=== PATIENT | female | born 1970 | race Caucasian/White ===

== ENCOUNTER 2016-11-14 20:55 | Emergency (ER) | payer MEDICARE, OTHER ==
--- NOTE | 2016-11-14 22:17 | US ---
EXAM: US Duplex Left Lower Extremity Veins. CLINICAL HISTORY: Reason: Pain TECHNIQUE: Real-time ultrasound scan of the veins of the left lower extremity with color Doppler flow, spectral waveform analysis and compression. COMPARISON: None. FINDINGS: Deep veins: Unremarkable. No DVT in the common femoral, femoral or popliteal veins. Superficial veins: Unremarkable. No thrombus in the visualized greater saphenous vein. IMPRESSION: No evidence of deep venous thrombosis in the left lower extremity.
[2016-11-14 22:53] LABS: CH 29.4; CHCM 33.6; HCT 48.2 % (34.0-46.0); HDW 2.59; HGB 15.9 gm/dL (11.4-16.0); MCV 87.9 fL (80.0-100.0); Mean Platelet Volume 8.3; RBC 5.48 m/uL (3.80-5.40); RDW 13.6 % (11.5-15.5); WBC 13.9 k/uL (3.8-10.6); WBC (Perox) 13.38
--- NOTE | 2016-11-14 22:54 | ED ---
Lower Extremity Injury HPI - General Chief Complaint: Extremity Injury, Lower Stated Complaint: left leg pain Time Seen by Provider: 11/14/16 22:08 Source: patient Mode of arrival: ambulatory Limitations: no limitations - History of Present Illness Initial Comments: This patient is a 45-year-old woman who presents to be evaluated for left ankle pain. She states that the pain has been there for going on 3 days. She does not recall having a definite injury to the area. She states that the pain is moderate, gets much worse if she attempts to bear weight, the pain is constant and it is an aching. She states that she has been using a walker to aid in her walking. In addition she noted that there is a reddened area of skin over the aldridge of the left leg that developed after she had been having the pain for a day. Onset/Timin -: days(s) Place: home Improves With: rest Worsens With: weight bearing Associated Symptoms: swelling - Related Data Home Medications Medication Instructions Recorded Confirmed Cholecalciferol [Vitamin D3] 1,000 unit PO DAILY 11/14/16 11/14/16 Fenofibrate [Lofibra] 160 mg PO DAILY 11/14/16 11/14/16 Furosemide [Lasix] 20 mg PO DAILY 11/14/16 11/14/16 Losartan Potassium [Cozaar] 50 mg PO DAILY 11/14/16 11/14/16 Verapamil HCl [Verapamil ER] 240 mg PO DAILY 11/14/16 11/14/16 guaiFENesin [Mucinex] 600 mg PO Q12HR 11/14/16 11/14/16 Previous Rx's Medication Instructions Recorded Acetaminophen Tab [Tylenol Tab] 500 mg PO Q4H #30 tablet 10/19/15 Allergies Allergy/AdvReac Type Severity Reaction Status Date / Time Tetracyclines Allergy Unknown Verified 11/14/16 20:59 red dye Allergy Unknown Uncoded 11/14/16 20:59 Review of Systems ROS Statement: Those systems with pertinent positive or pertinent negative responses have been documented in the HPI. ROS Other: All systems not noted in ROS Statement are negative. Constitutional: Denies: fever, chills ENT: Reports: congestion Respiratory: Reports: cough. Denies: dyspnea Cardiovascular: Denies: chest pain, palpitations, edema Gastrointestinal: Denies: abdominal pain, vomiting, diarrhea Musculoskeletal: Reports: joint swelling, arthralgia Skin: Reports: as per HPI, rash Neurological: Denies: headache, weakness Past Medical History Past Medical History: Seizure Disorder Additional Past Medical History / Comment(s): encephaltis, lyme disease History of Any Multi-Drug Resistant Organisms: MRSA Date of last positivie culture/infection: 2009 MDRO Source:: Left Buttocks Past Surgical History: Unable to Obtain Additional Past Surgical History / Comment(s): left thigh cyst removed Past Psychological History: Anxiety Smoking Status: Never smoker Past Alcohol Use History: None Reported Past Drug Use History: None Reported General Exam Limitations: no limitations General appearance: alert, in no apparent distress Eye exam: Present: normal appearance. Absent: scleral icterus, conjunctival injection Neck exam: Present: normal inspection, full ROM Respiratory exam: Present: normal lung sounds bilaterally. Absent: respiratory distress, wheezes, rales, rhonchi, stridor Cardiovascular Exam: Present: regular rate, normal rhythm, normal heart sounds. Absent: systolic murmur, diastolic murmur, rubs, gallop GI/Abdominal exam: Present: soft. Absent: distended, tenderness, guarding, rebound Extremities exam: Present: normal capillary refill. Absent: pedal edema, calf tenderness Back exam: Present: normal inspection. Absent: CVA tenderness (R), CVA tenderness (L) Skin exam: Present: warm, dry, intact, other (There is one area of erythema and tenderness approximately at 2 and half by 3 cm to the anterior of the left aldridge just proximal to the ankle. This has the appearance consistent with erythema nodosum.) Course Vital Signs 11/14/16 11/14/16 20:56 23:33 Temperature 98.8 F 97.9 F Pulse Rate 112 H 94 Respiratory 20 18 Rate Blood Pressure 180/79 142/77 O2 Sat by Pulse 97 95 Oximetry Medical Decision Making - Medical Decision Making Patient is a 45-year-old woman with left ankle arthralgia, without recalling any trauma. The patient also has an area of erythema to the pretibial area which does appear consistent with erythema nodosum however there is only one lesion which would be atypical. We'll have the patient follow with rheumatology. Discussed appropriate follow-up and return parameters. - Lab Data Result diagrams: 11/14/16 22:35 11/14/16 22:35 Lab Results 11/14/16 11/14/16 11/14/16 Range/Units 22:35 22:35 22:35 WBC 13.9 H (3.8-10.6) k/uL RBC 5.48 H (3.80-5.40) m/uL Hgb 15.9 (11.4-16.0) gm/dL Hct 48.2 H (34.0-46.0) % MCV 87.9 (80.0-100.0) fL MCH 29.0 (25.0-35.0) pg MCHC 33.0 (31.0-37.0) g/dL RDW 13.6 (11.5-15.5) % Plt Count 229 (150-450) k/uL Neutrophils % (Manual) 51.0 % Lymphocytes % (Manual) 44.0 % Monocytes % (Manual) 5.0 % Neutrophils # (Manual) 7.1 (1.3-7.7) k/uL Lymphocytes # (Manual) 6.1 H (1.0-4.8) k/uL Monocytes # (Manual) 0.7 (0-1.0) k/uL Nucleated RBCs 0 (0-0) /100 WBC Manual Slide Review Performed Reactive Lymphocytes Present ESR 8 (0-20) mm/hr D-Dimer 0.39 (<0.60) mg/L FEU Sodium 143 (137-145) mmol/L Potassium 4.3 (3.5-5.1) mmol/L Chloride 102 (98-107) mmol/L Carbon Dioxide 27 (22-30) mmol/L Anion Gap 14 mmol/L BUN 14 (7-17) mg/dL Creatinine 0.70 (0.52-1.04) mg/dL Est GFR (MDRD) Af Amer >60 (>60 ml/min/1.73 sqM) Est GFR (MDRD) Non-Af >60 (>60 ml/min/1.73 sqM) Glucose 121 H (74-99) mg/dL Calcium 10.3 H (8.4-10.2) mg/dL Group A Strep Rapid (Negative) 11/14/16 Range/Units 22:35 WBC (3.8-10.6) k/uL RBC (3.80-5.40) m/uL Hgb (11.4-16.0) gm/dL Hct (34.0-46.0) % MCV (80.0-100.0) fL MCH (25.0-35.0) pg MCHC (31.0-37.0) g/dL RDW (11.5-15.5) % Plt Count (150-450) k/uL Neutrophils % (Manual) % Lymphocytes % (Manual) % Monocytes % (Manual) % Neutrophils # (Manual) (1.3-7.7) k/uL Lymphocytes # (Manual) (1.0-4.8) k/uL Monocytes # (Manual) (0-1.0) k/uL Nucleated RBCs (0-0) /100 WBC Manual Slide Review Reactive Lymphocytes ESR (0-20) mm/hr D-Dimer (<0.60) mg/L FEU Sodium (137-145) mmol/L Potassium (3.5-5.1) mmol/L Chloride (98-107) mmol/L Carbon Dioxide (22-30) mmol/L Anion Gap mmol/L BUN (7-17) mg/dL Creatinine (0.52-1.04) mg/dL Est GFR (MDRD) Af Amer (>60 ml/min/1.73 sqM) Est GFR (MDRD) Non-Af (>60 ml/min/1.73 sqM) Glucose (74-99) mg/dL Calcium (8.4-10.2) mg/dL Group A Strep Rapid Negative (Negative) Disposition Clinical Impression: Erythema nodosum, Ankle pain, left Disposition: HOME SELF-CARE Condition: Fair Instructions: Arthralgia (ED) Referrals: Kerry Prater MD [Primary Care Provider] - 1-2 days
[2016-11-14 23:16] LABS: Add Differential Manual Differential
[2016-11-14 23:17] LABS: Nucleated Red Blood Cells 0 /100 WBC (0-0); Total Cells Counted 100
[2016-11-14 23:18] LABS: Manual Review Performed; Reactive Lymphocytes Present
[2016-11-14 23:25] LABS: Anion Gap 14 mmol/L; Blood Urea Nitrogen 14 mg/dL (7-17); Calcium 10.3 mg/dL (8.4-10.2); Carbon Dioxide 27 mmol/L (22-30); Chloride 102 mmol/L (98-107); Glucose 121 mg/dL (74-99); Non-African American GFR(MDRD) >60 (>60 ml/min/1.73 sqM); Potassium 4.3 mmol/L (3.5-5.1); Sodium 143 mmol/L (137-145)
[2016-11-14 23:34] VITALS: BP 142/77; PULSE 94; RESP 18; TEMP 97.9
[2016-11-14 23:40] LABS: Erythrocyte Sedimentation Rate 8 mm/hr (0-20)
--- NOTE | 2016-11-14 23:47 | XR ---
EXAM: XR Chest, 2 Views. CLINICAL HISTORY: Reason: cough TECHNIQUE: Frontal and lateral views of the chest. COMPARISON: None FINDINGS: Lungs: Unremarkable. No consolidation. Pleural space: No pleural effusion. No pneumothorax. Heart: Unremarkable. No cardiomegaly. Mediastinum: Unremarkable. Bones/joints: Unremarkable. IMPRESSION: No acute cardiopulmonary disease.
== END 2016-11-15 00:33 | disposition home or self-care (01) ==
LOC: EEVIPCON 20:55 → EC 20:55
DX: L52 Erythema nodosum (principal); M25.572 Pain in left ankle and joints of left foot; Z88.1 Allergy status to other antibiotic agents; Z91.048 Other nonmedicinal substance allergy status; Z79.899 Other long term (current) drug therapy
CPT/HCPCS: 36415; 71020; 80048; 85025; 85379; 85652; 87081; 87430; 99284

== ENCOUNTER 2017-01-13 16:46 | Emergency (ER) | payer MEDICARE, OTHER ==
[2017-01-13 17:04] VITALS: BP 141/73
--- NOTE | 2017-01-13 18:26 | ED ---
General Adult HPI - General Chief complaint: Shortness of Breath Stated complaint: Calf Pain, SOB Time Seen by Provider: 01/13/17 18:16 Source: patient, RN notes reviewed Mode of arrival: ambulatory Limitations: no limitations - History of Present Illness Initial comments: 46-year-old female presents to the emergency Department chief complaint of left knee and calf pain. Patient has had this pain for the past 2 days. Patient has noticed a bruise to her knee as well. Patient states that she also has had a chronic cough shortness of breath since June. Patient states she continues to have sputum production she's had x-rays she's had PFT testing and he cannot seem to figure out why she has this chronic cough. Patient denies any change or worsening to her cough and shortness of breath from June at this time. Patient states she is more concerned about her left knee pain and left calf pain. Patient states that she is not currently having any other symptoms.Patient denies any recent fever, chills, chest pain, back pain, abdominal pain, nausea vomiting, numbness or tingling, dysuria or hematuria, constipation or diarrhea, headaches or visual changes, or any other current symptoms. - Related Data Home Medications Medication Instructions Recorded Confirmed Cholecalciferol [Vitamin D3] 3,000 unit PO DAILY 11/14/16 01/13/17 Fenofibrate [Lofibra] 160 mg PO DAILY 11/14/16 01/13/17 Furosemide [Lasix] 20 mg PO DAILY 11/14/16 01/13/17 Losartan Potassium [Cozaar] 50 mg PO DAILY 11/14/16 01/13/17 Verapamil HCl [Verapamil ER] 240 mg PO DAILY 11/14/16 01/13/17 Acetaminophen Tab [Tylenol Tab] 1,000 mg PO Q4H PRN 01/13/17 01/13/17 Desonide [DesOwen .05%] 1 applic TOPICAL TID 01/13/17 01/13/17 Famotidine 10 mg PO DAILY 01/13/17 01/13/17 Loratadine [Claritin] 10 mg PO DAILY 01/13/17 01/13/17 Phentermine HCl [Adipex-P] 37.5 mg PO DAILY 01/13/17 01/13/17 Allergies Allergy/AdvReac Type Severity Reaction Status Date / Time Tetracyclines Allergy Unknown Verified 01/13/17 19:01 vitamin E (d-alpha Allergy Unknown Verified 01/13/17 19:01 tocopherol) ethinyl estradiol AdvReac Swelling Verified 01/13/17 19:01 [From Ortho Tri-Cyclen (28)] gabapentin [From Neurontin] AdvReac Swelling Verified 01/13/17 19:01 norgestimate AdvReac Swelling Verified 01/13/17 19:01 [From Ortho Tri-Cyclen (28)] Tqyplap-Dlo-Kbe Reductase AdvReac Swelling Verified 01/13/17 19:01 Inhibitor red dye Allergy Unknown Uncoded 11/14/16 20:59 Review of Systems ROS Statement: Those systems with pertinent positive or pertinent negative responses have been documented in the HPI. ROS Other: All systems not noted in ROS Statement are negative. Past Medical History Past Medical History: Seizure Disorder Additional Past Medical History / Comment(s): encephaltis, lyme disease, [place] , [employer] disorder History of Any Multi-Drug Resistant Organisms: MRSA Date of last positivie culture/infection: 2009 MDRO Source:: Left Buttocks Past Surgical History: Section Additional Past Surgical History / Comment(s): left thigh cyst removed, laporoscopy Past Psychological History: Anxiety Smoking Status: Never smoker Past Alcohol Use History: None Reported Past Drug Use History: None Reported General Exam - General Exam Comments Initial Comments: General: The patient is awake and alert, in no distress, and does not appear acutely ill. Eye: Pupils are equal, round and reactive to light, extra-ocular movements are intact; there is normal conjunctiva bilaterally. No signs of icterus. Ears, nose, mouth and throat: There are moist mucous membranes and no oral lesions. Neck: The neck is supple, there is no tenderness. Cardiovascular: There is a regular rate and rhythm. No murmur, rub or gallop is appreciated. Respiratory: Lungs are clear to auscultation, respirations are non-labored, breath sounds are equal. No wheezes, stridor, rales, or rhonchi. Gastrointestinal: Soft, non-distended, non-tender abdomen without masses or organomegaly noted. There is no rebound or guarding present. No CVA tenderness. Bowel sounds are unremarkable. Back: There is no tenderness to palpation in the midline. There is no obvious deformity. No rashes noted. Musculoskeletal: Normal ROM, mode tenderness to the superior patella of the left knee. With associated ecchymosis. There is no pedal edema. There is no calf tenderness or swelling. Sensation intact. Pulses equal bilaterally 2+. Neurological: CN II-XII intact, There are no obvious motor or sensory deficits. Coordination appears grossly intact. Speech is normal. Skin: Skin is warm and dry and no rashes or lesions are noted. Psychiatric: Cooperative, appropriate mood & affect, normal judgment. Limitations: no limitations Course Vital Signs 01/13/17 01/13/17 16:59 18:39 Temperature 98.1 F Pulse Rate 105 H 97 Respiratory 19 18 Rate Blood Pressure 141/73 O2 Sat by Pulse 97 98 Oximetry Medical Decision Making - Medical Decision Making 46-year-old female presents emergency Department with a chief complaint left calf and knee pain. Patient also admits to chronic cough and shortness of breath that she has had since June.this an x-ray and ultrasound of used to do not show any acute findings. Time we discussed patient appears to have increased the left knee. We discussed Motrin Tylenol and ice. Patient also appears a chronic cough and chest x-ray shows no pneumonia. We discussed continued follow-up with her doctor for this. We discussed [facility] we did discuss return parameters all patient's questions plan. She will be discharged. - Lab Data Result diagrams: 01/13/17 18:36 01/13/17 18:36 Lab Results 01/13/17 01/13/17 01/13/17 Range/Units 18:36 18:36 18:36 WBC 10.5 (3.8-10.6) k/uL RBC 5.41 H (3.80-5.40) m/uL Hgb 15.7 (11.4-16.0) gm/dL Hct 47.6 H (34.0-46.0) % MCV 87.9 (80.0-100.0) fL MCH 29.0 (25.0-35.0) pg MCHC 32.9 (31.0-37.0) g/dL RDW 13.1 (11.5-15.5) % Plt Count 237 (150-450) k/uL Neutrophils % 57 % Lymphocytes % 35 % Monocytes % 4 % Eosinophils % 2 % Basophils % 1 % Neutrophils # 6.0 (1.3-7.7) k/uL Lymphocytes # 3.7 (1.0-4.8) k/uL Monocytes # 0.4 (0-1.0) k/uL Eosinophils # 0.3 (0-0.7) k/uL Basophils # 0.1 (0-0.2) k/uL PT 10.1 (9.0-12.0) sec INR 1.0 (<1.1) APTT 23.5 (22.0-30.0) sec Sodium 141 (137-145) mmol/L Potassium 4.1 (3.5-5.1) mmol/L Chloride 106 (98-107) mmol/L Carbon Dioxide 24 (22-30) mmol/L Anion Gap 11 mmol/L BUN 11 (7-17) mg/dL Creatinine 0.84 (0.52-1.04) mg/dL Est GFR (MDRD) Af Amer >60 (>60 ml/min/1.73 sqM) Est GFR (MDRD) Non-Af >60 (>60 ml/min/1.73 sqM) Glucose 97 (74-99) mg/dL Calcium 9.7 (8.4-10.2) mg/dL Total Bilirubin 0.4 (0.2-1.3) mg/dL AST 22 (14-36) U/L ALT 43 (9-52) U/L Alkaline Phosphatase 76 (38-126) U/L Total Protein 7.0 (6.3-8.2) g/dL Albumin 4.4 (3.5-5.0) g/dL Disposition Clinical Impression: Chronic cough, Contusion of left knee, Pain of left calf Disposition: HOME SELF-CARE Condition: Stable Instructions: Chronic Cough (ED), Knee Pain (ED) Additional Instructions: Please use medication as discussed. Please follow up with family doctor if symptoms have not improved over the next two days. Please return to the emergency room if your symptoms increase or worsen or for any other concerns. Referrals: Kerry Prater MD [Primary Care Provider] - 1-2 days Time of Disposition: 19:39
[2017-01-13 18:54] LABS: Basophils # (A) 0.1 k/uL (0-0.2); Basophils % (A) 1 %; CH 29.2; CHCM 33.4; Eosinophils # (A) 0.3 k/uL (0-0.7); Eosinophils % (A) 2 %; HCT 47.6 % (34.0-46.0); HDW 2.65; HGB 15.7 gm/dL (11.4-16.0); Luc # (Auto) 0.12; Luc % (Auto) 1; Lymphocytes # (A) 3.7 k/uL (1.0-4.8); Lymphocytes % (A) 35 %; MCHC 32.9 g/dL (31.0-37.0); MCV 87.9 fL (80.0-100.0); Mean Platelet Volume 8.6; Monocytes # (A) 0.4 k/uL (0-1.0); Monocytes % (A) 4 %; Neutrophils % (A) 57 %; RBC 5.41 m/uL (3.80-5.40); RDW 13.1 % (11.5-15.5); WBC 10.5 k/uL (3.8-10.6); WBC (Perox) 9.73
[2017-01-13 19:07] LABS: ALT 43 U/L (9-52); AST 22 U/L (14-36); Alkaline Phosphatase 76 U/L (38-126); Anion Gap 11 mmol/L; Blood Urea Nitrogen 11 mg/dL (7-17); Calcium 9.7 mg/dL (8.4-10.2); Carbon Dioxide 24 mmol/L (22-30); Chloride 106 mmol/L (98-107); Glucose 97 mg/dL (74-99); Non-African American GFR(MDRD) >60 (>60 ml/min/1.73 sqM); Potassium 4.1 mmol/L (3.5-5.1); Sodium 141 mmol/L (137-145); Total Bilirubin 0.4 mg/dL (0.2-1.3)
--- NOTE | 2017-01-13 19:28 | US ---
EXAMINATION TYPE: US venous doppler duplex LE LT DATE OF EXAM: 01/13/2017 7:16 PM COMPARISON: Prior in PACS CLINICAL HISTORY: Pain and swelling left leg. Area of bruising left anterior knee, no known injury SIDE PERFORMED: Left TECHNIQUE: The lower extremity deep venous system is examined utilizing real time linear array sonog felipe with graded compression, doppler sonography and color-flow sonography. VESSELS IMAGED: External Iliac Vein (EIV) Common Femoral Vein Deep Femoral Vein Greater Saphenous Vein * Femoral Vein Popliteal Vein Small Saphenous Vein * Proximal Calf Veins (* superficial vessels) Left Leg: Negative for DVT. At the area of the patients bruising on the left anterior knee, there is a hypoechoic area visualized measuring 1.4 x 0.5 x 1.8 cm IMPRESSION: No evidence of deep venous thrombosis. There is a elongated complex area on the anteri or knee at the area of bruising consistent with a small hematoma.
--- NOTE | 2017-01-13 19:32 | XR ---
EXAMINATION TYPE: XR knee complete LT DATE OF EXAM: 01/13/2017 COMPARISON: NONE HISTORY: Pain TECHNIQUE: 3 views FINDINGS: There is mild spurring of the medial femoral and tibial condyles. There is mild spurring of the patella. There is bipartite patella noted. I see no fracture. There is no definite joint effusio n. IMPRESSION: Mild osteoarthritic changes. No fracture.
--- NOTE | 2017-01-13 19:33 | XR ---
EXAMINATION TYPE: XR chest 2V DATE OF EXAM: 01/13/2017 COMPARISON: 11/14/2016 HISTORY: Cough TECHNIQUE: Frontal and lateral views of the chest are obtained. FINDINGS: Heart and mediastinum are normal. Lungs are clear. Diaphragm is normal. Bony thorax is int act. IMPRESSION: Normal chest. No change.
[2017-01-13 19:37] LABS: Partial Thromboplastin Time 23.5 sec (22.0-30.0); Prothrombin Time 10.1 sec (9.0-12.0)
[2017-01-13 19:55] VITALS: PULSE 86; RESP 16; TEMP 98.2
== END 2017-01-13 20:09 | disposition home or self-care (01) ==
LOC: EC 16:46
DX: S80.02XA Contusion of left knee, initial encounter (principal); R05 Cough; M79.662 Pain in left lower leg; R06.02 Shortness of breath; Z86.14 Personal history of Methicillin resistant Staphylococcus aureus infection; Z79.899 Other long term (current) drug therapy; Z88.1 Allergy status to other antibiotic agents; Z88.8 Allergy status to other drugs, medicaments and biological substances; Z91.041 Radiographic dye allergy status
CPT/HCPCS: 36415; 71020; 80053; 85025; 85610; 85730; 99285

== ENCOUNTER 2019-03-06 14:09 | Observation (INO) | payer MEDICARE, OTHER ==
[2019-03-06] MEDS ORDERED: hydrALAZINE HCL 20 MG/ML 1 ML VIAL IVP STA (14:41)
[2019-03-06] MEDS ORDERED: NITROGLYCERIN OINT 1 INCH/GM PACKET TOPICAL STA (14:41)
[2019-03-06] MEDS ORDERED: ACETAMINOPHEN TAB 500 MG TAB PO STA (14:42)
[2019-03-06] MEDS ORDERED: MORPHINE SULFATE 2 MG/ML SYRINGE IVP STA (14:42)
[2019-03-06 14:51] LABS: Basophils # (A) 0.1 k/uL (0-0.2); Basophils % (A) 1 %; Eosinophils # (A) 0.2 k/uL (0-0.7); Eosinophils % (A) 2 %; HCT 43.3 % (34.0-46.0); HGB 15.1 gm/dL (11.4-16.0); Lymphocytes # (A) 3.9 k/uL (1.0-4.8); Lymphocytes % (A) 33 %; MCH 29.8 pg (25.0-35.0); MCHC 34.8 g/dL (31.0-37.0); MCV 85.6 fL (80.0-100.0); Mean Platelet Volume 8.1; Monocytes # (A) 0.5 k/uL (0-1.0); Monocytes % (A) 4 %; Neutrophils # (A) 6.7 k/uL (1.3-7.7); Neutrophils % (A) 58 %; Platelet Count 235 k/uL (150-450); RBC 5.05 m/uL (3.80-5.40); RDW 14.7 % (11.5-15.5); WBC 11.5 k/uL (3.8-10.6)
[2019-03-06 14:58] LABS: ALT 31 U/L (9-52); AST 20 U/L (14-36); African American GFR (CKD) >90 (>60 ml/min/1.73 sqM); Albumin 4.6 g/dL (3.5-5.0); Alkaline Phosphatase 87 U/L (38-126); Anion Gap 4 mmol/L; Blood Urea Nitrogen 11 mg/dL (7-17); Carbon Dioxide 29 mmol/L (22-30); Chloride 102 mmol/L (98-107); Glucose 133 mg/dL (74-99); INR 0.9 (<1.2); Magnesium 1.7 mg/dL (1.6-2.3); Non-African American GFR(CKD) >90 (>60 ml/min/1.73 sqM); Partial Thromboplastin Time 23.6 sec (22.0-30.0); Potassium 3.9 mmol/L (3.5-5.1); Prothrombin Time 9.4 sec (9.0-12.0); Sodium 135 mmol/L (137-145); Total Bilirubin 0.2 mg/dL (0.2-1.3); Total Protein 7.4 g/dL (6.3-8.2)
--- NOTE | 2019-03-06 15:05 | CT ---
EXAMINATION TYPE: CT brain wo con DATE OF EXAM: 03/06/2019 COMPARISON: NONE HISTORY: headache, dizziness CT DLP: 1091.4 mGycm. Automated Exposure Control for Dose Reduction was Utilized. TECHNIQUE: CT scan of the head is performed without contrast. FINDINGS: There is no acute intracranial hemorrhage, mass effect, or midline shift identified. The ventricles and sulci are within normal limits in size.. The globes are symmetric and unremarkable. W ithin the right maxillary sinus there is a dependent 1.2 cm mucosal retention cyst that is partially visualized versus less likely polyp. Polypoid coastal thickening is also seen in the medial wall the left maxillary sinus measuring 4 mm. Scant mucosal thickening is seen of the nasopharynx. Remaining p aranasal sinuses and mastoid air cells are well aerated. IMPRESSION: No acute intracranial hemorrhage, mass effect, or midline shift is seen. Polypoid mucosa l thickening versus mucosal retention cysts in the maxillary sinuses.
--- NOTE | 2019-03-06 15:09 | XR ---
EXAMINATION TYPE: XR chest 2V DATE OF EXAM: 03/06/2019 COMPARISON: 01/13/2017 HISTORY: Shortness of breath and chest pain TECHNIQUE: Frontal and lateral views of the chest are obtained. FINDINGS: There is no focal air space opacity, pleural effusion, or pneumothorax seen. The cardiac silhouette size is within normal limits. The osseous structures are intact. IMPRESSION: No acute cardiopulmonary process.
--- NOTE | 2019-03-06 15:35 | ED ---
General Adult HPI - General Chief complaint: Recheck/Abnormal Lab/Rx Stated complaint: Chest pain, allergic reaction Time Seen by Provider: 03/06/19 14:10 Source: patient, RN notes reviewed Mode of arrival: wheelchair Limitations: no limitations - History of Present Illness Initial comments: This is a 48-year-old female presents emergency Department stating that for the last couple of weeks she's had an occasional rash that causes her to itch her ankles and her arms but states that is much better. Patient also is noted edema to both ankles however again today states she is much better. Patient states her blood pressures been elevated over 200 quite consistently over the last couple of weeks. Patient states she has headache and has had significant chest pain as well. Patient continues to complain of a headache at this time and states she does have some chest heaviness in the center of her chest. Patient denies any diaphoretic episodes. Patient denies lightheadedness dizziness or near-syncopal episode. Patient denies palpation. Patient denies any shortness of breath or difficulty breathing - Related Data Home Medications Medication Instructions Recorded Confirmed Cholecalciferol [Vitamin D3] 3,000 unit PO DAILY 11/14/16 01/13/17 Acetaminophen Tab [Tylenol Tab] 1,000 mg PO Q4H PRN 01/13/17 01/13/17 Allergies Allergy/AdvReac Type Severity Reaction Status Date / Time Tetracyclines Allergy Unknown Verified 03/06/19 15:31 vitamin E (d-alpha Allergy Unknown Verified 03/06/19 15:31 tocopherol) ethinyl estradiol AdvReac Swelling Verified 03/06/19 15:31 [From Ortho Tri-Cyclen (28)] gabapentin [From Neurontin] AdvReac Swelling Verified 03/06/19 15:31 norgestimate AdvReac Swelling Verified 03/06/19 15:31 [From Ortho Tri-Cyclen (28)] Wbbsoql-Caa-Gir Reductase AdvReac Swelling Verified 03/06/19 15:31 Inhibitor red dye Allergy Unknown Uncoded 11/14/16 20:59 Review of Systems ROS Statement: Those systems with pertinent positive or pertinent negative responses have been documented in the HPI. ROS Other: All systems not noted in ROS Statement are negative. Past Medical History Past Medical History: Seizure Disorder Additional Past Medical History / Comment(s): encephaltis, lyme disease, [place], THERAPIST disorder History of Any Multi-Drug Resistant Organisms: MRSA Date of last positivie culture/infection: 2009 MDRO Source:: Left Buttocks Past Surgical History: Section Additional Past Surgical History / Comment(s): left thigh cyst removed, lapo roscopy Past Psychological History: Anxiety Smoking Status: Current every day smoker Past Alcohol Use History: None Reported Past Drug Use History: None Reported General Exam - General Exam Comments Initial Comments: GENERAL: Patient is well-developed and well-nourished. Patient is nontoxic and well- hydrated and is in no acute distress. ENT: Neck is soft and supple. No significant lymphadenopathy is noted. Oropharynx is clear. Moist mucous membranes. Neck has full range of motion without eliciting any pain. EYES: The sclera were anicteric and conjunctiva were pink and moist. Extraocular movements were intact and pupils were equal round and reactive to light. Eyelids were unremarkable. PULMONARY: Unlabored respirations. Good breath sounds bilaterally. No audible rales rhonchi or wheezing was noted. CARDIOVASCULAR: There is a regular rate and rhythm without any murmurs gallops or rubs. ABDOMEN: Soft and nontender with normal bowel sounds. No palpable organomegaly was noted. There is no palpable pulsatile mass. SKIN: Patient has a small area of redness on her back and one small area on the ankle both of which look like mosquito bites. NEUROLOGIC: Patient is alert and oriented x3. Cranial nerves II through XII are grossly intact. Motor and sensory are also intact. Normal speech, volume and content. Symmetrical smile. MUSCULOSKELETAL: Normal extremities with adequate strength and full range of motion. LYMPHATICS: No significant lymphadenopathy is noted PSYCHIATRIC: Normal psychiatric evaluation. Limitations: no limitations Course Vital Signs 03/06/19 03/06/19 03/06/19 14:12 14:21 15:13 Temperature 98.2 F Pulse Rate 108 H Pulse Rate [ 102 H Survey Party Chief ] Respiratory 18 Rate Blood Pressure 201/125 146/90 O2 Sat by Pulse 98 Oximetry Medical Decision Making - Medical Decision Making EKG shows normal sinus rhythm at 92 bpm WI interval is on a 42 QRS 84 QT interval 366 QTC is 452 per patient's EKG shows no ST segment elevation or depression or T wave abnormalities are noted. - Lab Data Result diagrams: 03/06/19 14:25 03/06/19 14:25 Lab Results 08/12/1803/06/19 03/06/19 Range/Units 14:25 14:25 14:25 WBC 11.5 H (3.8-10.6) k/uL RBC 5.05 (3.80-5.40) m/uL Hgb 15.1 (11.4-16.0) gm/dL Hct 43.3 (34.0-46.0) % MCV 85.6 (80.0-100.0) fL MCH 29.8 (25.0-35.0) pg MCHC 34.8 (31.0-37.0) g/dL RDW 14.7 (11.5-15.5) % Plt Count 235 (150-450) k/uL Neutrophils % 58 % Lymphocytes % 33 % Monocytes % 4 % Eosinophils % 2 % Basophils % 1 % Neutrophils # 6.7 (1.3-7.7) k/uL Lymphocytes # 3.9 (1.0-4.8) k/uL Monocytes # 0.5 (0-1.0) k/uL Eosinophils # 0.2 (0-0.7) k/uL Basophils # 0.1 (0-0.2) k/uL PT 9.4 (9.0-12.0) sec INR 0.9 (<1.2) APTT 23.6 (22.0-30.0) sec Sodium 135 L (137-145) mmol/L Potassium 3.9 (3.5-5.1) mmol/L Chloride 102 (98-107) mmol/L Carbon Dioxide 29 (22-30) mmol/L Anion Gap 4 mmol/L BUN 11 (7-17) mg/dL Creatinine 0.68 (0.52-1.04) mg/dL Est GFR (CKD-EPI)AfAm >90 (>60 ml/min/1.73 sqM) Est GFR (CKD-EPI)NonAf >90 (>60 ml/min/1.73 sqM) Glucose 133 H (74-99) mg/dL Calcium 10.0 (8.4-10.2) mg/dL Magnesium 1.7 (1.6-2.3) mg/dL Total Bilirubin 0.2 (0.2-1.3) mg/dL AST 20 (14-36) U/L ALT 31 (9-52) U/L Alkaline Phosphatase 87 (38-126) U/L Troponin I (0.000-0.034) ng/mL Total Protein 7.4 (6.3-8.2) g/dL Albumin 4.6 (3.5-5.0) g/dL 03/06/19 Range/Units 14:25 WBC (3.8-10.6) k/uL RBC (3.80-5.40) m/uL Hgb (11.4-16.0) gm/dL Hct (34.0-46.0) % MCV (80.0-100.0) fL MCH (25.0-35.0) pg MCHC (31.0-37.0) g/dL RDW (11.5-15.5) % Plt Count (150-450) k/uL Neutrophils % % Lymphocytes % % Monocytes % % Eosinophils % % Basophils % % Neutrophils # (1.3-7.7) k/uL Lymphocytes # (1.0-4.8) k/uL Monocytes # (0-1.0) k/uL Eosinophils # (0-0.7) k/uL Basophils # (0-0.2) k/uL PT (9.0-12.0) sec INR (<1.2) APTT (22.0-30.0) sec Sodium (137-145) mmol/L Potassium (3.5-5.1) mmol/L Chloride (98-107) mmol/L Carbon Dioxide (22-30) mmol/L Anion Gap mmol/L BUN (7-17) mg/dL Creatinine (0.52-1.04) mg/dL Est GFR (CKD-EPI)AfAm (>60 ml/min/1.73 sqM) Est GFR (CKD-EPI)NonAf (>60 ml/min/1.73 sqM) Glucose (74-99) mg/dL Calcium (8.4-10.2) mg/dL Magnesium (1.6-2.3) mg/dL Total Bilirubin (0.2-1.3) mg/dL AST (14-36) U/L ALT (9-52) U/L Alkaline Phosphatase (38-126) U/L Troponin I <0.012 (0.000-0.034) ng/mL Total Protein (6.3-8.2) g/dL Albumin (3.5-5.0) g/dL Disposition Clinical Impression: Chest pain, Headache, Hypertension Disposition: ADMITTED IP TO THIS HOSP Referrals: None,Stated [Primary Care Provider] - 1-2 days Time of Disposition: 15:35
[2019-03-06] MEDS ORDERED: NITROGLYCERIN SL TABS 0.4 MG TAB SUBLINGUAL PRN (15:36)
[2019-03-06 17:34] VITALS: BP 144/87; PULSE 90; RESP 16
[2019-03-06] MEDS ORDERED: NITROGLYCERIN OINT 1 INCH/GM PACKET TOPICAL SCH (18:00)
[2019-03-06 18:27] VITALS: TEMP 98
[2019-03-07] MEDS ORDERED: ASPIRIN 325 MG TAB PO SCH (09:00)
== END 2019-03-06 18:23 | disposition left against medical advice (07) ==
LOC: EC 14:09 → 1SOBS 15:36
PROVIDERS: ADMIT Internal Medicine; ATTEND Internal Medicine
DX: R07.89 Other chest pain (principal); I10 Essential (primary) hypertension; R51 Headache; R60.0 Localized edema; R21 Rash and other nonspecific skin eruption; F17.200 Nicotine dependence, unspecified, uncomplicated; Z86.14 Personal history of Methicillin resistant Staphylococcus aureus infection; Z88.8 Allergy status to other drugs, medicaments and biological substances; Z88.1 Allergy status to other antibiotic agents; Z91.02 Food additives allergy status; Z53.21 Procedure and treatment not carried out due to patient leaving prior to being seen by health care provider
CPT/HCPCS: 96374; 99285; 36415; 93005; 80053; 83735; 84484; 85025; 85610; 85730; 71046; 70450; G0378; J0360

== ENCOUNTER 2019-10-09 | Emergency (ER) | payer MEDICARE, OTHER | END 2019-10-09 22:04 | disposition home or self-care (01) | CPT/HCPCS: 99283 ==

== ENCOUNTER 2019-12-28 20:00 | Emergency (ER) | payer MEDICARE, OTHER ==
[2019-12-28 20:13] VITALS: BP 136/75; PULSE 92; RESP 16; TEMP 98.7
[2019-12-28] MEDS ORDERED: LIDOCAINE/EPINEPHR/TETRACAINE 5 ML BOTTLE TOPICAL ONE (20:21)
[2019-12-28] MEDS ORDERED: DIPH,PERTUS(ACELL)TETVAC-LF 0.5 ML VIAL IM ONE (20:21)
[2019-12-28] MEDS ORDERED: LIDOCAINE 1% INJ 10MG/ML (20 ML MDV) SQ ONE (20:38)
--- NOTE | 2019-12-28 21:08 | ED ---
Wound/Laceration HPI - General Chief Complaint: Wound/Laceration Stated Complaint: Left hand laceration Time Seen by Provider: 12/28/19 20:14 Source: patient, RN notes reviewed, old records reviewed Mode of arrival: ambulatory Limitations: no limitations - History of Present Illness Initial Comments: 49-year-old female presents emergency room today with chief complaint of a laceration over the left fourth knuckle. Patient reports that she was pushing the garbage in the [place] compacted in the metal can that was in the trash can cut the knuckle. She reports she has full range of motion. She reports her tetanus is not up-to-date. She also complains of some lesions over her shoulder and neck that she has been treated in the past for MRSA folliculitis and requests an antibiotic at this time. - Related Data Home Medications Medication Instructions Recorded Confirmed Cholecalciferol [Vitamin D3] 5,000 unit PO DAILY 11/14/16 03/06/19 Acetaminophen Tab [Tylenol Tab] 1,000 mg PO Q4H PRN 01/13/17 03/06/19 Albuterol Inhaler (Mhu) [Ventolin 1 - 2 puff INHALATION RT-Q6H PRN 03/06/19 03/06/19 Hfa Inhaler] Diltiazem HCl [Cardizem LA] 240 mg PO DAILY 03/06/19 03/06/19 Evolocumab [Repatha Syringe] 280 mg SQ Q14D 03/06/19 03/06/19 Famotidine 20 mg PO HS 03/06/19 03/06/19 Levocetirizine Dihydrochloride 5 mg PO DAILY PRN 03/06/19 03/06/19 [Xyzal] Losartan Potassium 100 mg PO DAILY 03/06/19 03/06/19 Previous Rx's Medication Instructions Recorded Mupirocin 2% Oint [Bactroban 2% 1 applic TOPICAL TID #60 gm 10/09/19 Oint] Sulfamethox-Tmp 800-160Mg [Bactrim 2 tab PO Q12HR #40 tab 10/09/19 DS 800-160 mg] Mupirocin 2% Oint [Bactroban 2% 1 applic TOPICAL TID #60 gm 12/28/19 Oint] Sulfamethox-Tmp 800-160Mg [Bactrim 2 tab PO BID #40 tab 12/28/19 DS 800-160 mg] Allergies Allergy/AdvReac Type Severity Reaction Status Date / Time diltiazem Allergy Swelling Verified 12/28/19 20:12 minocycline Allergy Swelling Verified 12/28/19 20:12 Progestins Allergy Unknown Verified 12/28/19 20:12 simvastatin [From Zocor] Allergy Swelling Verified 12/28/19 20:12 Tetracyclines Allergy Unknown Verified 12/28/19 20:12 vitamin E (d-alpha Allergy Unknown Verified 12/28/19 20:12 tocopherol) ethinyl estradiol AdvReac Swelling Verified 12/28/19 20:12 [From Ortho Tri-Cyclen (28)] gabapentin [From Neurontin] AdvReac Swelling Verified 12/28/19 20:12 norgestimate AdvReac Swelling Verified 12/28/19 20:12 [From Ortho Tri-Cyclen ()] Uukcozd-Jsw-Vod Reductase AdvReac Swelling Verified 12/28/19 20:12 Inhibitor red dye Allergy Unknown Uncoded 12/28/19 20:12 Review of Systems ROS Statement: Those systems with pertinent positive or pertinent negative responses have been documented in the HPI. ROS Other: All systems not noted in ROS Statement are negative. 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 History of Any Multi-Drug Resistant Organisms: MRSA Date of last positivie culture/infection: 2015 MDRO Source:: scalp Past Surgical History: Section Additional Past Surgical History / Comment(s): left thigh cyst removed, laporoscopy, D&C Past Psychological History: Anxiety Smoking Status: Current every day smoker Past Alcohol Use History: Rare Past Drug Use History: None Reported General Exam - General Exam Comments Initial Comments: Alert and oriented 49-year-old female. No distress. Limitations: no limitations General appearance: alert Head exam: Present: atraumatic Eye exam: Present: normal appearance, PERRL, EOMI. Absent: scleral icterus, conjunctival injection, periorbital swelling ENT exam: Present: normal exam, mucous membranes moist Neck exam: Present: normal inspection Respiratory exam: Present: normal lung sounds bilaterally. Absent: respiratory distress, wheezes, rales, rhonchi, stridor Cardiovascular Exam: Present: regular rate, normal rhythm, normal heart sounds. Absent: systolic murmur, diastolic murmur, rubs, gallop, clicks Extremities exam: Present: normal inspection, other (Patient has a 2 cm laceration over the left second knuckle.) Back exam: Present: normal inspection Neurological exam: Present: alert, oriented X3, CN II-XII intact Psychiatric exam: Present: normal affect, normal mood Skin exam: Present: warm, dry, intact, normal color, rash (Patient has papular lesions over the back and upper arms consistent with folliculitis. Does report history of MRSA.) Course Vital Signs 12/28/19 20:09 Temperature 98.7 F Pulse Rate 92 Respiratory 16 Rate Blood Pressure 136/75 O2 Sat by Pulse 97 Oximetry Medical Decision Making - Medical Decision Making 49-year-old female presents for in terms today with a hand laceration after cutting it on a metal can while pushing her garbage can. Patient at this time. Was given updated tetanus and the wound was thoroughly irrigated. Patient was cleansed and then anesthetized with lidocaine. Approximately 3 sutures were placed and the wound. Patient's tendons are intact she has full range of motion and sensation of the finger. No evidence of retained foreign body. Discussed suture care instructions. She also complains of a rash over the back and arms consistent with folliculitis. She does report history of MRSA and this is healed well Bactrim. Given the Patient a short course of Bactrim and Bactroban ointment. She is agreeable to treatment plan will comply. Disposition Clinical Impression: Hand laceration, Rash Disposition: HOME SELF-CARE Condition: Good Instructions (If sedation given, give patient instructions): Care For Your Stitches (ED), Laceration (ED) Additional Instructions: Please return to the emergency room in 8-10 days to have sutures removed. Please leave wound covered for the first 24-48 hours and then leave open to air after that time. Please use clean soap and water to clean the suture area to prevent scabbing over the top of your sutures. Please watch for any signs of infection which may include but not limited to increased pain, swelling, redness, fever or chills. Please return to the emergency room if any signs of infection do occur. Please return to the emergency room for any other concerns or complications. Prescriptions: Sulfamethox-Tmp 800-160Mg [Bactrim DS 800-160 mg] 2 tab PO BID #40 tab Mupirocin 2% Oint [Bactroban 2% Oint] 1 applic TOPICAL TID #60 gm Is patient prescribed a controlled substance at d/c from ED?: No Referrals: None,Stated [Primary Care Provider] - 1-2 days Time of Disposition: 21:08
== END 2019-12-28 21:18 | disposition home or self-care (01) ==
LOC: EC 20:00
DX: S61.412A Laceration without foreign body of left hand, initial encounter (principal); R21 Rash and other nonspecific skin eruption; F17.200 Nicotine dependence, unspecified, uncomplicated; Z23 Encounter for immunization; Z86.14 Personal history of Methicillin resistant Staphylococcus aureus infection; Z79.899 Other long term (current) drug therapy; Z88.8 Allergy status to other drugs, medicaments and biological substances; Z88.1 Allergy status to other antibiotic agents; Z91.048 Other nonmedicinal substance allergy status; W45.8XXA Other foreign body or object entering through skin, initial encounter; Y93.89 Activity, other specified
CPT/HCPCS: 90715; 99283; 12001; 90471; J2001

== ENCOUNTER → 2020-12-09 | Outpatient (CLI) | payer MEDICARE, OTHER ==
--- NOTE | 2020-12-10 08:37 | CT ---
EXAMINATION TYPE: CT sinus wo con DATE OF EXAM: 12/09/2020 COMPARISON: None HISTORY: c/o facial pain, worst right-sided CT DLP: 440.7 mGycm CONTRAST: 0 mL of Isovue 300 The paranasal sinuses are examined in the axial plane at 2 mm thick sections. Reconstructed images i n the coronal plane were obtained. There is dental amalgam scatter artifact Inferior maxillary sinus mucosal thickening is present. The ethmoid air cells are clear. The spheno id sinuses are clear. The frontal sinuses are clear. The septum is evaluated. There is septal deviation to the right. The ostiomeatal units are patent. IMPRESSIONS: 1. Inferior maxillary sinus retention cyst or mucosal thickening.
== END | disposition home or self-care (01) ==
LOC: RADCTMAIN 17:31
PROVIDERS: ATTEND Otolaryngology
DX: R51.9 Headache, unspecified (principal)
CPT/HCPCS: 70486

== ENCOUNTER → 2020-12-25 | Outpatient (CLI) | payer MEDICARE, OTHER ==
[2020-12-25 09:05] VITALS: BP 135/85; PULSE 92; RESP 16; TEMP 98.8
--- NOTE | 2020-12-25 12:27 | P.HPOB ---
History of Present Illness H&P Date: 12/25/20 Chief Complaint: The patient is here for her routine gynecologic exam and ma mmogram. This is a 50-year-old with an LMP of 2004. The patient is here to establish with this office. It has been about 5 years since her last pelvic exam and mammogram. She has been experiencing bilateral breast soreness which she says she has had "all her life". She also experiences occasional urinary leakage with coughing or sneezing. She typically has to wear a pad most of the time. She denies any postmenopausal bleeding. Review of Systems The patient's weight has been stable over the last year. 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 She denies respiratory, cardiac, or G.I. problems. 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 Abnormal cardiac valve. Sinus cyst. Tremors. 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 She did have a history of endometriosis. History of Any Multi-Drug Resistant Organisms: MRSA Date of last positivie culture/infection: 2015 MDRO Source:: scalp Additional Past Surgical History / Comment(s): left thigh cyst removed, laporoscopyx5, ovarian cystectomy, D&C. Colonoscopy 2015(next after 10yr) Past Psychological History: Anxiety Smoking Status: Current every day smoker (Less than one half pack per day) Past Alcohol Use History: Rare (1 every 6 months) Past Drug Use History: None Reported Additional History: She is single and is not seeing anybody at this time. She does not work outside the home and is considered disabled. - Past Family History Father Family Medical History: Cancer, Diabetes Mellitus Additional Family Medical History / Comment(s): Bladder cancer. Paternal uncle had colon cancer. Mother Family Medical History: Coronary Artery Disease (CAD), Myocardial Infarction (ID) Additional Family Medical History / Comment(s): She believes her maternal grandmother had ovarian cancer. Maternal uncle had lung cancer. Medications and Allergies Home Medications Medication Instructions Recorded Confirmed Type Cholecalciferol [Vitamin D3] 5,000 unit PO DAILY 11/14/16 12/25/20 History Acetaminophen Tab [Tylenol Tab] 1,000 mg PO Q4H PRN 01/13/17 12/25/20 History Albuterol Inhaler (Mhu) [Ventolin 1 - 2 puff INHALATION RT-Q6H PRN 03/06/19 12/25/20 History Hfa Inhaler] Losartan Potassium 100 mg PO DAILY 03/06/19 12/25/20 History Mupirocin 2% Oint [Bactroban 2% 1 applic TOPICAL TID #60 gm 12/28/19 12/25/20 Rx Oint] Dexamethasone [Decadron] 0.75 mg PO DAILY 12/25/20 12/25/20 History Evolocumab [Repatha Sureclick] 140 mg SQ DAILY 12/25/20 12/25/20 History Furosemide [Lasix] 20 mg PO DAILY 12/25/20 12/25/20 History Allergies Allergy/AdvReac Type Severity Reaction Status Date / Time diltiazem Allergy Swelling Verified 12/25/20 08:57 minocycline Allergy Swelling Verified 12/25/20 08:57 Progestins Allergy Unknown Verified 12/25/20 08:57 simvastatin [From Zocor] Allergy Swelling Verified 12/25/20 08:57 Tetracyclines Allergy Unknown Verified 12/25/20 08:57 vitamin E (d-alpha Allergy Unknown Verified 12/25/20 08:57 tocopherol) ethinyl estradiol AdvReac Swelling Verified 12/25/20 08:57 [From Ortho Tri-Cyclen (28)] gabapentin [From Neurontin] AdvReac Swelling Verified 12/25/20 08:57 norgestimate AdvReac Swelling Verified 12/25/20 08:57 [From Ortho TelePharm-Cyclen (28)] Sdonfwx-Yhh-Hiw Reductase AdvReac Swelling Verified 12/25/20 08:57 Inhibitor red dye Allergy Unknown Uncoded 12/25/20 08:57 Exam Vital Signs Temp Pulse Resp BP Pulse Ox 12/25/20 09:02 98.8 F 92 16 135/85 99 Intake and Output 12/24/20 12/25/20 12/25/20 22:59 06:59 14:59 Other: Weight 115.212 kg Height 5 feet 9 inches, weight 254 pounds, BMI 37.5. This is a well-developed well-nourished white female who is alert and oriented times 3 in no acute distress. HEENT: Within normal limits. NECK: Supple without mass or thyromegaly. CHEST AND LUNGS: Clear to auscultation. HEART: Regular rate and rhythm. BREASTS: Are without mass or discharge. The breasts are nontender. AXILLARY EXAM: Negative for adenopathy. BACK: Negative for CVA tenderness. ABDOMEN: Soft, nontender, without palpable masses. PELVIC EXAM: Normal external genitalia with minimal atrophy. Cervix and vagina appear normal with mild atrophy. There is no unusual discharge. There is no evidence of prolapse. There is slight urethral mobility with cough and Valsalva. No urinary leakage was demonstrated. The uterus is midposition, nongravid size and nontender. There are no palpable adnexal masses or tenderness. RECTAL EXAM: Rectovaginal exam is negative for mass or tenderness and is negative for occult blood. EXTREMITIES: Nontender. IMPRESSION: 1. 50-year-old menopausal female with normal gynecologic exam. 2. Long history of bilateral breast soreness with no significant physical findings on exam today. 3. Mild stress urinary incontinence with small urethral mobility and no evidence of cystocele. PLAN: 1. Pap smear cotest was performed. 2. Self breast awareness was discussed with the patient. 3. Screening mammogram will be done today. 4. Osteoporosis prevention was discussed. I have stressed the importance of adequate calcium, vitamin D and regular exercise. Recommended amounts of calcium and vitamin D were also discussed. 5. We've had long discussion regarding stress urinary incontinence. I have recommended ketal exercises and timed voids. She will also try to complete the empty her bladder when she does void by relaxing and giving herself more time. If this is becoming a significant problem, we have discussed the option of referral to a an [facility] urologist for further evaluation and possible treatment. 6. She was advised to return in one year for her annual well woman exam.
--- NOTE | 2020-12-26 10:17 | MM ---
Reason for exam: screening (asymptomatic). Last mammogram was performed 3 years and 6 months ago. History: Patient had first child at age 32. Benign lumpectomy of the left breast, 1995. Physical Findings: A clinical breast exam by your physician is recommended on an annual basis and results should be correlated with mammographic findings. MG 3D Screening Mammo W/Cad Bilateral CC and MLO view(s) were taken. Prior study comparison: June 17, 2017, mammogram, performed at [facility]. December 18, 2015, mammogram, performed at [facility]. There are scattered fibroglandular densities. There are benign appearing round calcifications bilaterally. There is chronic nodularity bilaterally. There is no discrete abnormality. ASSESSMENT: Benign, BI-RAD 2 RECOMMENDATION: Routine screening mammogram of both breasts in 1 year.
== END ==
LOC: WWCWWP 08:42
PROVIDERS: ATTEND Obstetrics & Gynecology
DX: Z12.31 Encounter for screening mammogram for malignant neoplasm of breast (principal); N39.3 Stress incontinence (female) (male); J45.909 Unspecified asthma, uncomplicated; E78.5 Hyperlipidemia, unspecified; I10 Essential (primary) hypertension; F17.210 Nicotine dependence, cigarettes, uncomplicated; Z88.8 Allergy status to other drugs, medicaments and biological substances; Z88.1 Allergy status to other antibiotic agents; Z88.6 Allergy status to analgesic agent; Z91.041 Radiographic dye allergy status
CPT/HCPCS: 77063; 77067

== ENCOUNTER → 2022-07-16 | Outpatient (CLI) | payer MEDICARE, OTHER ==
--- NOTE | 2022-07-24 06:23 | BMR ---
EXAMINATION TYPE: MR breast BILAT wo/w con DATE OF EXAM: 07/16/2022 COMPARISON: Outside bilateral screening mammogram May 01, 2022 BI-RADS 0. Diagnostic left breas t ultrasound May 22, 2022 BI-RADS 4. HISTORY: Breast cancer, history of biopsy left breast upper outer quadrant June 03, 2022 invasive ductal carcinoma TECHNIQUE: A series of fat and water weighted images in the long and short axis views of both breasts are obtained in conjunction with dynamic contrast MRI with subtraction technique. The patient was i njected with 10 mL intravenous Gadavist gadolinium contrast. Three-dimensional and additional postp rocessing imaging is created on independent workstation and reviewed during official interpretation o f this study. FINDINGS: Scattered fibroglandular tissue throughout the bilateral breasts is redemonstrated. T2 and STIR weighted images show occasional tiny thin-walled cysts bilaterally. There are two slightly bulki er Lymph nodes in the left axilla with eccentric cortical thickening, most suspicious noted axial im age 173 series 401 having 6 to 7 mm eccentric cortical thickening with more posterior lymph node axia l image 166 having similar 6 to 7 mm eccentric cortical thickening. The former is 1.2 cm long axis ax ial image 174. Postcontrast images show mild symmetric background enhancement. With regards to the right breast, a few tiny scattered areas of nodular background enhancement are se en. No pathologic enhancement or enhancing masses are noted. No abnormal skin thickening is present. The chest wall is intact. With regards to the left breast, there is enhancing mass posterior depth outer slightly upper quadran t corresponding to the ultrasound lesion at 2:00 position measuring 1.2 cm AP diameter by 1.5 cm rose sversely by 1.7 cm craniocaudal diameter with artifact from biopsy clip along the medial margin corre sponding to biopsy-proven carcinoma. No additional pathologic enhancing masses are present. No abnorm al skin thickening is seen. The chest wall is intact. IMPRESSION: Biopsy-proven malignancy left breast identified. There are nonspecific Nonspecific but 2 suspicious left axillary lymph nodes noted. No MRI evidence for invasive malignancy in the right ra[address]. BI-RADS 6 biopsy-proven malignancy left breast BI-RADS 2 benign findings right breast. Recommendation: Appropriate surgical and oncologic management for the newly diagnosed left breast kirk plasm.
== END | disposition home or self-care (01) ==
LOC: RADMRIMAIN 12:03
PROVIDERS: ATTEND Surgery
DX: C50.412 Malignant neoplasm of upper-outer quadrant of left female breast (principal)
CPT/HCPCS: C8908; A9585; 77049